=== PATIENT | female | born 1990 | race Caucasian/White ===

== ENCOUNTER 2023-07-26 01:03 | Emergency (ER) | payer MEDICAID ==
[~2023-07-26] VITALS: Ht 167.6 cm; Wt 74.8 kg
[2023-07-26 01:15] VITALS: BP_SYST 108; PULSE 106; RESP 20; TEMP 99; O2SAT 98
[2023-07-26] MEDS ORDERED: LIDOCAINE/EPI 1% 1:100000 20 ML VIAL INJ ONE (01:45)
[2023-07-26 03:01] VITALS: BP_SYST 108; PULSE 106; RESP 20; TEMP 99; O2SAT 98
== END 2023-07-26 03:01 | disposition home or self-care (01) ==
LOC: SED 01:03
DX: S51.011A Laceration without foreign body of right elbow, initial encounter (principal); S51.812A Laceration without foreign body of left forearm, initial encounter; W25.XXXA Contact with sharp glass, initial encounter; Y93.89 Activity, other specified; Y92.89 Other specified places as the place of occurrence of the external cause; Y99.8 Other external cause status
CPT/HCPCS: 99283